=== PATIENT | female | born 1950 | race Caucasian/White ===

== ENCOUNTER 2018-01-28 09:30 | Observation (INO) ==
[2018-01-28 10:51] LABS: Baso % (Auto) 0.6 % (0.0-2.0); Eos # (Auto) 0.1 th/mm3 (0.0-0.4); Eos % (Auto) 2.3 % (0.0-4.0); Hemoglobin 14.4 gm/dL (11.6-15.3); Lymph # (Auto) 1.6 th/mm3 (1.0-4.8); Lymph % (Auto) 25.3 % (9.0-44.0); Mean Corpuscular HGB Conc 34.1 % (32.0-36.0); Mean Corpuscular Hemoglobin 29.8 pg (27.0-34.0); Mean Corpuscular Volume 87.4 fL (80.0-100.0); Mean Platelet Volume 8.7 fL (7.0-11.0); Mono # (Auto) 0.4 th/mm3 (0.0-0.9); Mono % (Auto) 6.8 % (0.0-8.0); Neut # (Auto) 4.1 th/mm3 (1.8-7.7); Platelet Count 160 th/mm3 (150-450); Red Blood Count 4.81 mil/mm3 (4.00-5.30); Red Cell Distribution Width 14.9 % (11.6-17.2); White Blood Count 6.3 th/mm3 (4.0-11.0)
[2018-01-28 11:13] LABS: Prothrombin Time 9.9 sec (9.8-11.6)
[2018-01-28 11:14] LABS: D-Dimer 0.47 mg/L FEU (0.00-0.50)
[2018-01-28 11:20] LABS: Alanine Aminotransferase 37 U/L (10-53); Albumin 3.7 g/dL (3.4-5.0); Anion Gap 11 meq/L (5-15); Blood Urea Nitrogen 11 mg/dL (7-18); Calcium 8.7 mg/dL (8.5-10.1); Carbon Dioxide 25.5 meq/L (21.0-32.0); Chloride 107 meq/L (98-107); Glomerular Filtration Rate 72 mL/min (>89); Glucose,Random 92 mg/dL (74-106); Lipase 242 U/L (73-393); Potassium 3.7 meq/L (3.5-5.1); Sodium 143 meq/L (136-145)
[2018-01-28 11:25] LABS: Alkaline Phosphatase 119 U/L (45-117); Aspartate Aminotransferase 26 U/L (15-37); Total Protein 7.3 g/dL (6.4-8.2)
[2018-01-28 11:26] LABS: Creatine Kinase 37 U/L (26-192)
--- NOTE | 2018-01-28 11:41 | XR ---
EXAM DATE: 01/28/2018 11:16 AM EDT AGE/SEX: 67 years / Female INDICATIONS: Fluttering feeling in her chest today CLINICAL DATA: This is the patient's initial encounter. Patient reports that signs and symptoms have been present for 1 day and indicates a pain score of 3/10. MEDICAL/SURGICAL HISTORY: None. None. COMPARISON: No prior exams available for comparison. FINDINGS: The cardiac silhouette is enlarged in transverse diameter. The lungs are free of acute parenchymal op acity. No effusions are identified. There is prominence of the aortic knob is with calcification frieda acteristic of atherosclerotic vascular disease. CONCLUSION: Cardiomegaly. No acute pulmonary disease. Electronically signed by: Pan Enamorado MD 01/28/2018 11:40 AM EDT
--- NOTE | 2018-01-28 11:54 | ED ---
HPI General Chief Complaint: Chest Pain Stated Complaint: Chest Pain Time Seen by Provider: 01/28/18 10:09 Source: patient Mode of arrival: ambulatory Limitations: no limitations History of Present Illness HPI narrative: Patient is a 67-year-old female with history of hypothyroidism who presents to the emergency room with complaints of chest pain. Patient reports that she woke up this morning with a substernal flutter to her chest. Reports that her Fitbit said that her heart rate was 126. Patient reports that her heart was racing, reports that she began to have pressure and shortness of breath along with nausea with no vomiting. Patient reports that all of a sudden she felt diaphoretic, she was lasted for a few minutes and resolves on its own. Patient reports that she began to have return of chest pain upon arrival to the emergency room, patient describes the chest pain as a "little pressure to her chest." Pain is rated 3 out of 10. Patient denies history of hypertension or hyperlipidemia, no history of coronary artery disease. Patient is concerned as her brother passed of a massive HI at 61 years old. Patient is a non-smoker, she quit smoking tobacco a few years ago. Patient with no history of PE or DVT, denies any recent travels or trips or immobilization. Complete Quality Measures for STEMI Alert Patients Related Data Home Medications Medication Instructions Recorded Confirmed levothyroxine 125 mcg PO DAILY 01/28/18 01/28/18 Allergies Allergy/AdvReac Type Severity Reaction Status Date / Time No Known Allergies Allergy Unverified 01/28/18 10:01 Review of Systems ROS: all other systems reviewed are negative [facility] Medical History Medical History Hypothyroidism (Acute) Ovarian cyst, left (Acute) Surgical History Surgical History History of back surgery (Acute) History of cholecystectomy (Acute) Hx of appendectomy (Acute) Social History Social History Smoking Status: Former smoker How Often Do You Have a Drink Containing Alcohol: 4 or more times a week Recent Travel in [facility] within the Last 8 Weeks: No Recent Out of Country Travel within the Last 8 Weeks: No Immunization History Tetanus Immunization: Unsure Hx Influenza Vaccine This Season: Yes Exam Narrative Exam Narrative: GENERAL: NAD SKIN: Focused skin assessment warm/dry. HEAD: Atraumatic. Normocephalic. EYES: Pupils equal and round. No scleral icterus. No injection or drainage. ENT: No nasal bleeding or discharge. Mucous membranes pink and moist. NECK: Trachea midline. No JVD. CARDIOVASCULAR: Regular rate and rhythm. No murmur appreciated. RESPIRATORY: No accessory muscle use. Clear to auscultation. Breath sounds equal bilaterally. GASTROINTESTINAL: Abdomen soft, non-tender, nondistended. Hepatic and splenic margins not palpable. MUSCULOSKELETAL: No obvious deformities. No clubbing. No cyanosis. No edema. NEUROLOGICAL: Awake and alert. No obvious cranial nerve deficits. Motor grossly within normal limits. Normal speech. PSYCHIATRIC: Appropriate mood and affect; insight and judgment normal. Course Initial Documented Vital Signs Temperature 97.6 F 01/28/18 09:31 Pulse Rate 80 01/28/18 09:31 Respiratory Rate 18 01/28/18 09:31 Blood Pressure 209/91 H 01/28/18 09:31 Pulse Oximetry 98 01/28/18 09:31 Last Documented Vital Signs Temperature 97.6 F 01/28/18 09:31 Pulse Rate 72 01/28/18 10:36 Respiratory Rate 17 01/28/18 10:36 Blood Pressure 160/76 H 01/28/18 10:36 Pulse Oximetry 92 L 01/28/18 11:42 Medical Decision Making [facility] Narrative Medical decision making narrative: During the course of the patients emergency department visit, the patients history, examination, and differential diagnosis were reviewed with the patient. The patient was placed on a cardiac catheterization technician with oximetry and frequent blood pressure monitoring. The patient had an IV access obtained and blood work sent for analysis. The patient was initially provided asa as well as SL nitro. All labs and all studies were reviewed. First set of troponin is less than 0.02 , d-dimer is 0.47. Patient had relief of chest pain after she had 2 sublingual nitroglycerin tabs. Plan to obs in chest pain unit Medical Screen Exam Complete: Yes Emergency Medical Condition: Yes Differential Diagnosis Differential Diagnosis: ACS, arrhythmia, PE, electrolyte abnormality, pneumothorax Medical Records Medical records reviewed: Yes I reviewed the patient's medical records. Lab Data Lab results reviewed: Yes I reviewed the patient's lab results. Result diagrams: 01/28/18 10:25 01/28/18 10:25 Lab Results 01/28/18 01/28/18 01/28/18 Range/Units 10:25 10:25 10:25 WBC 6.3 (4.0-11.0) th/mm3 RBC 4.81 (4.00-5.30) mil/mm3 Hgb 14.4 (11.6-15.3) gm/dL Hct 42.0 (35.0-46.0) % MCV 87.4 (80.0-100.0) fL MCH 29.8 (27.0-34.0) pg MCHC 34.1 (32.0-36.0) % RDW 14.9 (11.6-17.2) % Plt Count 160 (150-450) th/mm3 MPV 8.7 (7.0-11.0) fL Neut % (Auto) 65.0 (16.0-70.0) % Lymph % (Auto) 25.3 (9.0-44.0) % [place] % (Auto) 6.8 (0.0-8.0) % Eos % (Auto) 2.3 (0.0-4.0) % Baso % (Auto) 0.6 (0.0-2.0) % Neut # (Auto) 4.1 (1.8-7.7) th/mm3 Lymph # (Auto) 1.6 (1.0-4.8) th/mm3 [place] # (Auto) 0.4 (0.0-0.9) th/mm3 Eos # (Auto) 0.1 (0.0-0.4) th/mm3 Baso # (Auto) 0.0 (0.0-0.2) th/mm3 WBC Differential . Differential Comment Auto diff final PT 9.9 (9.8-11.6) sec INR 1.0 Ratio D-Dimer Quant (PE/DVT) 0.47 (0.00-0.50) mg/L FEU Sodium (136-145) meq/L Potassium (3.5-5.1) meq/L Chloride (98-107) meq/L Carbon Dioxide (21.0-32.0) meq/L Anion Gap (5-15) meq/L BUN (7-18) mg/dL Creatinine (0.50-1.00) mg/dL Estimated GFR (>89) mL/min Random Glucose (74-106) mg/dL Calcium (8.5-10.1) mg/dL Total Bilirubin (0.2-1.0) mg/dL AST (15-37) U/L ALT (10-53) U/L Alkaline Phosphatase (45-117) U/L Total Creatine Kinase (26-192) U/L Troponin I (0.02-0.05) ng/mL B-Natriuretic Peptide 21 (0-100) pg/mL Total Protein (6.4-8.2) g/dL Albumin (3.4-5.0) g/dL Lipase (73-393) U/L 01/28/18 Range/Units 10:25 WBC (4.0-11.0) th/mm3 RBC (4.00-5.30) mil/mm3 Hgb (11.6-15.3) gm/dL Hct (35.0-46.0) % MCV (80.0-100.0) fL MCH (27.0-34.0) pg MCHC (32.0-36.0) % RDW (11.6-17.2) % Plt Count (150-450) th/mm3 MPV (7.0-11.0) fL Neut % (Auto) (16.0-70.0) % Lymph % (Auto) (9.0-44.0) % [place] % (Auto) (0.0-8.0) % Eos % (Auto) (0.0-4.0) % Baso % (Auto) (0.0-2.0) % Neut # (Auto) (1.8-7.7) th/mm3 Lymph # (Auto) (1.0-4.8) th/mm3 [place] # (Auto) (0.0-0.9) th/mm3 Eos # (Auto) (0.0-0.4) th/mm3 Baso # (Auto) (0.0-0.2) th/mm3 WBC Differential Differential Comment PT (9.8-11.6) sec INR Ratio D-Dimer Quant (PE/DVT) (0.00-0.50) mg/L FEU Sodium 143 (136-145) meq/L Potassium 3.7 (3.5-5.1) meq/L Chloride 107 (98-107) meq/L Carbon Dioxide 25.5 (21.0-32.0) meq/L Anion Gap 11 (5-15) meq/L BUN 11 (7-18) mg/dL Creatinine 0.79 (0.50-1.00) mg/dL Estimated GFR 72 L (>89) mL/min Random Glucose 92 (74-106) mg/dL Calcium 8.7 (8.5-10.1) mg/dL Total Bilirubin 0.5 (0.2-1.0) mg/dL AST 26 (15-37) U/L ALT 37 (10-53) U/L Alkaline Phosphatase 119 H (45-117) U/L Total Creatine Kinase 37 (26-192) U/L Troponin I Less than 0.02 L (0.02-0.05) ng/mL B-Natriuretic Peptide (0-100) pg/mL Total Protein 7.3 (6.4-8.2) g/dL Albumin 3.7 (3.4-5.0) g/dL Lipase 242 (73-393) U/L Imaging Data Attestation: I personally reviewed and interpreted this imaging study as follows : Radiologist's impression: Chest X-Ray 01/28/18 10:14 CONCLUSION: Cardiomegaly. No acute pulmonary disease. ECG Data EKG Prior to Arrival: No Attestation: I personally reviewed and interpreted this ECG as follows: Interpretation: EKG at 0955: NSR at 80bpm, qt/qtc: 389/425, no acute st or t wave changes Discharge Plan Discharge Disposition Patient Disposition: 30 Still Patient Discharge Condition Condition: Stable Discharge Details Diagnosis: Chest pain Physicians Team ED Provider: Yolette Reyes Primary Care Provider: Chanelle Kay Attending Provider: Dilma Fagan Discharge Interventions Interventions: Vital Signs Last Done: 01/28/18 10:36 Status ED Status: Admitted Observation Patient
--- NOTE | 2018-01-28 13:20 | P.HPCA ---
History of Present Illness Primary Care Physician: MONSE Lange Chief Complaint: Chest pain History of Present Illness: This is a 67-year-old female that presents to ED via private vehicle with complaint of waking up 5:00 this morning with a sensation of her heart beating out of her chest. She states she was wearing a fit bit and checked her heart rate was 126. Afterwards she developed a pressure in the center of her chest that waxed and waned in intensity lasted about 5 hours. For the most part the discomfort was about 3 out of 10. She denies being short of breath, nauseous, or diaphoretic. She believes she had a similar episode but was quite a while ago. She states that while living in [place] she had a similar episode and had a cardiac catheterization. She thinks that that was in 2005 and that it was normal. 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 She was hypotensive upon arrival in the ED but states that is very unusual for her. States she has never had a blood pressure reading that was elevated. Patient is a past smoker. States she quit smoking 12 years ago prior that she smoked 1/2-2 packs of cigarettes a day for 50 years. She has occasional alcohol. Denies illicit drug use. Has history of hypothyroidism. Denies hypertension, hyperlipidemia, diabetes, and CAD. There is family history of CAD. States that her brother at the age of 61 of a myocardial infarction. States only medication she takes is levothyroxine. - Diagnosis (1) Chest pain (2) Hypothyroidism Review of Systems General: Patient denies fevers, chills, and recent travel. HEENT: Patient denies headache, sore throat, difficulty swallowing. Cardiovascular: Has the chest discomfort as mentioned above. Denies sensation of heart beating rapidly or irregularly. No syncope. Respiratory: Denies shortness of breath or inspirational chest discomfort. Denies coughing wheezing or hemoptysis. GI: Patient denies nausea, vomiting, diarrhea, abdominal pain, bloody stools. Musculoskeletal: Patient denies joint pain or edema. Denies calf pain or edema. Neurovascular: Patient denies numbness, tingling, weakness in extremities. Denies headache. Endocrine: Denies polyuria and polydipsia. Hematologic: Denies easy bruising. Skin: Denies rash or itching. PMFSH - History History Provided By: Patient, Friend - Medical History Medical History: Medical History (Last Reviewed 01/28/18 @ 12:36 by Yolette Reyes) Hypothyroidism Ovarian cyst, left - Surgical History Surgical History: Surgical History (Last Reviewed 01/28/18 @ 12:36 by Yolette Reyes) History of back surgery History of cholecystectomy Hx of appendectomy - Tobacco History Smoking Status: Former smoker - Alcohol History How Often Do You Have a Drink Containing Alcohol: 4 or more times a week - Travel History Recent Travel in the [place] Within the Last 8 Weeks: No Recent Travel Out of the Country Within the Last 8 Weeks: No - Immunization History Tetanus Immunization: Unsure Hx Influenza Vaccine This Season: Yes Medications and Allergies Active Medications: Active Medications Acetaminophen (Tylenol) 500 mg PO Q6H PRN PRN Reason: pain scale 1-5 Hydrocodone Bitart/Acetaminophen ([place] 7.5/325) 1 tab PO Q6H PRN PRN Reason: pain scale 6-10 Albuterol (Duoneb Neb (Prn)) 1 ampul NEB Q4HR NEB PRN PRN Reason: SHORTNESS OF BREATH/WHEEZING Alprazolam (Xanax) 0.25 mg PO Q8H PRN PRN Reason: ANXIETY Aspirin (Aspirin) 325 mg PO DAILY SCAR Clonidine HCl (Catapres) 0.1 mg PO Q6H PRN PRN Reason: SBP >165 OR DBP > 110 Sodium Chloride (Ns Flush) 2 ml IV.FLUSH UNSCH PRN PRN Reason: FLUSH AFTER USING IV ACCESS Last Admin: 01/28/18 10:21 Dose: 2 ml Allergies Allergy/AdvReac Type Severity Reaction Status Date / Time No Known Allergies Allergy Unverified 01/28/18 10:01 Home Medications Medication Instructions Recorded Confirmed Type levothyroxine 125 mcg PO DAILY 01/28/18 01/28/18 History Exam Vital signs: Vital Signs 01/28/18 09:31 01/28/18 09:56 01/28/18 10:20 Temperature 97.6 F Pulse Rate 80 83 75 Respiratory Rate 18 20 20 Blood Pressure 209/91 H 203/95 H 209/92 H Pulse Oximetry 98 97 96 01/28/18 10:36 01/28/18 11:42 Temperature Pulse Rate 72 Respiratory Rate 17 Blood Pressure 160/76 H Pulse Oximetry 95 92 L Intake & Output 01/27/18 01/28/18 01/28/18 18:59 06:59 18:59 Weight 96.615 kg Narrative: GENERAL: This is a well-nourished, well-developed patient, in no apparent distress. Patient speaks in clear complete sentences. Patient is pleasant. HEENT: Head is atraumatic and normocephalic. Neck is supple without lymphadenopathy and trachea is midline. No JVD or carotid bruits. CARDIOVASCULAR: Regular rate and rhythm without murmurs, gallops, or rubs. RESPIRATORY: Clear to auscultation. Breath sounds equal bilaterally. No wheezes , rales, or rhonchi. Chest wall is tender reproducing the same discomfort that brought her to the ED. No use of accessory muscles. GASTROINTESTINAL: Abdomen is nontender, nondistended. Abdomen soft. No obvious pulsatile mass or bruit. No CVA tenderness. Strong femoral pulses bilaterally. Normal bowel sounds in all quadrants. MUSCULOSKELETAL: Patient is moving upper and lower extremities freely. No calf tenderness or edema, no Homans sign. Strong pulses in upper and lower extremities. NEUROLOGICAL: Patient is alert and oriented. Cranial nerves 2-12 are grossly intact. No focal deficits and speech is clear. SKIN: No rash and turgor is normal. Results 01/28/18 10:25 01/28/18 10:25 Cardiac Enzymes 01/28/18 01/28/18 Range/Units 10:25 10:25 AST 26 (15-37) U/L Troponin I Less than 0.02 L (0.02-0.05) ng/mL B-Natriuretic Peptide 21 (0-100) pg/mL Coagulation 01/28/18 01/28/18 Range/Units 10:25 10:25 PT 9.9 (9.8-11.6) sec B-Natriuretic Peptide 21 (0-100) pg/mL CBC 01/28/18 Range/Units 10:25 WBC 6.3 (4.0-11.0) th/mm3 RBC 4.81 (4.00-5.30) mil/mm3 Hgb 14.4 (11.6-15.3) gm/dL Hct 42.0 (35.0-46.0) % Plt Count 160 (150-450) th/mm3 Neut # (Auto) 4.1 (1.8-7.7) th/mm3 Lymph # (Auto) 1.6 (1.0-4.8) th/mm3 [place] # (Auto) 0.4 (0.0-0.9) th/mm3 Eos # (Auto) 0.1 (0.0-0.4) th/mm3 Baso # (Auto) 0.0 (0.0-0.2) th/mm3 Comprehensive Metabolic Panel 01/28/18 Range/Units 10:25 Sodium 143 (136-145) meq/L Potassium 3.7 (3.5-5.1) meq/L Chloride 107 (98-107) meq/L Carbon Dioxide 25.5 (21.0-32.0) meq/L BUN 11 (7-18) mg/dL Creatinine 0.79 (0.50-1.00) mg/dL Calcium 8.7 (8.5-10.1) mg/dL AST 26 (15-37) U/L ALT 37 (10-53) U/L Alkaline Phosphatase 119 H (45-117) U/L Total Protein 7.3 (6.4-8.2) g/dL Albumin 3.7 (3.4-5.0) g/dL Intake and Output 01/27/18 01/28/18 01/28/18 22:59 06:59 14:59 Other: Weight 96.615 kg Patient Weight 01/29/18 06:59 Weight 96.615 kg EKG interpretations - EKG EKG shows: sinus rhythm (EKG is sinus rhythm without significant ST segment depressions or elevations.) Caprini VTE Risk Assessment Caprini VTE Risk Assessment: Moderate/High Risk (score >= 2) Caprini Risk Assessment Model: Point Value = 1 Point Value = 2 Point Value = 3 Point Value = 5 Age 41-60 Minor surgery BMI > 25 kg/m2 Swollen legs Varicose veins or History of unexplained or recurrent spontaneous Oral contraceptives or hormone replacement Sepsis (< 1 month) Serious lung disease, including pneumonia (< 1 month) Abnormal pulmonary function Acute myocardial infarction Congestive heart failure (< 1 month) History of inflammatory bowel disease Medical patient at bed rest Age 61-74 Arthroscopic surgery Major open surgery (> 45 min) Laparoscopic surgery (> 45 min) Malignancy Confined to bed (> 72 hours) Immobilizing plaster cast Central venous access Age >= 75 History of VTE Family history of VTE Factor V Leiden Prothrombin [id number] Lupus anticoagulant Anticardiolipin antibodies Elevated serum homocysteine Heparin-induced thrombocytopenia Other congenital or acquired thrombophilia Stroke (< 1 month) Elective arthroplasty Hip, pelvis, or leg fracture Acute spinal cord injury (< 1 month) Prophylaxis Regimen: Total Risk Factor Score Risk Level Prophylaxis Regimen 0-1 Low Early ambulation 2 Moderate Order ONE of the following: *Sequential Compression Device (SCD) *Heparin 5000 units SQ BID 3-4 Higher Order ONE of the following medications: *Heparin 5000 units SQ TID *Enoxaparin/Lovenox 40 mg SQ daily (WT < 150 kg, CrCl > 30 mL/min) *Enoxaparin/Lovenox 30 mg SQ daily (WT < 150 kg, CrCl > 10-29 mL/min) *Enoxaparin/Lovenox 30 mg SQ BID (WT < 150 kg, CrCl > 30 mL/min) AND/OR *Sequential Compression Device (SCD) 5 or more Highest Order ONE of the following medications: *Heparin 5000 units SQ TID (Preferred with Epidurals) *Enoxaparin/Lovenox 40 mg SQ daily (WT < 150 kg, CrCl > 30 mL/min) *Enoxaparin/Lovenox 30 mg SQ daily (WT < 150 kg, CrCl > 10-29 mL/min) *Enoxaparin/Lovenox 30 mg SQ BID (WT < 150 kg, CrCl > 30 mL/min) AND *Sequential Compression Device (SCD) Assessment and Plan - Assessment (1) Chest pain Code(s): R07.9 - Chest pain, unspecified Status: Acute (2) Hypothyroidism Code(s): E03.9 - Hypothyroidism, unspecified Status: Acute - Plan * Chest pain: Patient will continue to have serial cardiac enzymes and EKGs for ruling out purposes. She will be seen by Dr. Fagan of cardiology in the chest pain center. She was hypertensive when arriving in the ED which she states is very unusual for her. Her blood pressures have since improved but still a little bit elevated. We will continue to monitor. As needed Catapres. Patient will likely have a Lexiscan in the morning as she has chronic back pain would not be able walk on the treadmill. She be discharged home if her stress test is nonischemic with instructions to follow-up with PCP. Return to ED for interval issues. * Hypothyroidism: Continue medication. Will get a TSH. Patient is stable at this time. She is agreeable to this plan.
[2018-01-28] MEDS ORDERED: ALPRAZolam 0.25 MG Tablet PO PRN (14:00)
[2018-01-28 14:39] LABS: Creatine Kinase 30 U/L (26-192)
[2018-01-28] MEDS ORDERED: Acetaminophen 500 MG Tablet PO PRN (15:00)
[2018-01-28 17:16] LABS: Thyroid Stimulating Hormone 0.048 uIU/mL (0.358-3.740)
[2018-01-28 17:23] LABS: Creatine Kinase 27 U/L (26-192)
[2018-01-29 08:19] VITALS: BP 164/77; PULSE 72; RESP 17; TEMP 97.8
--- NOTE | 2018-01-29 08:21 | P.PNCA ---
Subjective Interval history: Slept well. Intermittent left anterior chest pain. Sharp, brief discomfort of 1- 2 seconds. No radiation. Mild in severity. No precipitating or relieving factors. Physical Exam Vital signs: Vital Signs 01/28/18 09:31 01/28/18 09:56 01/28/18 10:20 Temperature 97.6 F Pulse Rate 80 83 75 Respiratory Rate 18 20 20 Blood Pressure 209/91 H 203/95 H 209/92 H Pulse Oximetry 98 97 96 01/28/18 10:36 01/28/18 11:42 01/28/18 13:57 Temperature 97.7 F Pulse Rate 72 74 Respiratory Rate 17 18 Blood Pressure 160/76 H 157/68 H Pulse Oximetry 95 92 L 95 01/28/18 15:05 01/28/18 15:08 01/28/18 19:20 Temperature 98.1 F 98.4 F Pulse Rate 73 73 81 Respiratory Rate 18 19 Blood Pressure 157/80 H 153/89 H Pulse Oximetry 94 L 01/28/18 20:00 01/29/18 00:00 01/29/18 03:16 Temperature 98.1 F 98.4 F Pulse Rate 79 75 73 Respiratory Rate 20 20 Blood Pressure 146/70 H 156/72 H Pulse Oximetry 94 L 94 L 01/29/18 07:37 01/29/18 08:00 Temperature 97.8 F Pulse Rate 72 Respiratory Rate 17 Blood Pressure 164/77 H Pulse Oximetry 97 93 L Intake & Output 01/28/18 01/29/18 01/29/18 18:59 06:59 18:59 Weight 96.615 kg Other: # Voids 1 1 Date of Last Bowel Movement 01/28/18 - Constitutional no acute distress - Routine HEENT Exam Head: Present: normocephalic - Routine Respiratory Exam Present: CTA bilaterally. Absent: accessory muscle use, respiratory distress, rhonchi, stridor, wheezes, crackles - Routine Cardiovascular Exam Present: RRR, S1, S2. Absent: murmur, gallop, rubs Assessment and Plan - Assessment (1) Chest pain Code(s): R07.9 - Chest pain, unspecified Status: Acute Plan: ACS ruled out with 3 sets of EKGs and cardiac enzymes. Monitor on telemetry overnight. Previously seen and evaluated by Dr. Dilma Rylan. Proceed with plan Lexiscan this a.m. If unremarkable, plans to discharge home with follow-up with primary care provider. Patient is agreeable to plan of care. (2) Hypothyroidism Code(s): E03.9 - Hypothyroidism, unspecified Status: Acute Plan: Continue levothyroxine. - Plan * Chest pain: Patient will continue to have serial cardiac enzymes and EKGs for ruling out purposes. She will be seen by Dr. Fagan of cardiology in the chest pain center. She was hypertensive when arriving in the ED which she states is very unusual for her. Her blood pressures have since improved but still a little bit elevated. We will continue to monitor. As needed Catapres. Patient will likely have a Lexiscan in the morning as she has chronic back pain would not be able walk on the treadmill. She be discharged home if her stress test is nonischemic with instructions to follow-up with PCP. Return to ED for interval issues. * Hypothyroidism: Continue medication. Will get a TSH. Patient is stable at this time. She is agreeable to this plan.
[2018-01-29] MEDS ORDERED: Aspirin 325 MG Tablet PO SCH (09:00)
[2018-01-29] MEDS ORDERED: Regadenoson Inj 0.4 MG/5 ML Syringe IV.PUSH ONE (11:29)
[2018-01-29 12:14] VITALS: O2SAT 98
--- NOTE | 2018-01-29 12:29 | ECG ---
Date Performed: 01/28/2018 Time Performed: 22:21:31 PTAGE: 67 years EKG: Sinus rhythm MARKED LEFT AXIS DEVIATION ABNORMAL ECG No change NO PREVIOUS TRACING DOCTOR: Jarret Jimenez Interpretating Date/Time 01/29/2018 12:27:15
--- NOTE | 2018-01-29 12:33 | ECG ---
Date Performed: 01/28/2018 Time Performed: 16:30:14 PTAGE: 67 years EKG: Sinus rhythm MARKED LEFT AXIS DEVIATION ABNORMAL ECG No significant change PREVIOUS TRACING : 01/28/2018 13.36 DOCTOR: Jarret Jimenez Interpretating Date/Time 01/29/2018 12:31:43
--- NOTE | 2018-01-29 12:33 | ECG ---
Date Performed: 01/28/2018 Time Performed: 13:36:49 PTAGE: 67 years EKG: Sinus rhythm PATTERN CONSISTENT WITH PULMONARY DISEASE LEFT ANTERIOR FASCICULAR BLOCK ABNORMAL ECG No significant change PREVIOUS TRACING : 01/28/2018 09.55 DOCTOR: Jarret Jimenez Interpretating Date/Time 01/29/2018 12:32:42
--- NOTE | 2018-01-29 12:34 | ECG ---
Date Performed: 01/28/2018 Time Performed: 09:55:57 PTAGE: 67 years EKG: Sinus rhythm MARKED LEFT AXIS DEVIATION PATTERN CONSISTENT WITH PULMONARY DISEASE ABNORMAL ECG NO PREVIOUS TRACING DOCTOR: Jarret Jimenez Interpretating Date/Time 01/29/2018 12:33:04
--- NOTE | 2018-01-29 13:03 | NM ---
EXAM DATE: 01/29/2018 12:58 PM EDT AGE/SEX: 67 years / Female INDICATIONS:Angina. . Center chest pain. CLINICAL DATA: This is the patient's initial encounter. Patient reports that signs and symptoms have been present for 2 days and indicates a pain score of 5/10. MEDICAL/SURGICAL HISTORY: Hypothyroidism. Fusion, lumbar. Cholecystectomy. COMPARISON: No prior exams available for comparison. DOSE: 8.1 mCi Tc 99m Myoview at rest 26.8 mCi [id number] at stress 0.4 mg Lexiscan STRESS SYMPTOMS: Headache. EJECTION FRACTION: >70 % TECHNIQUE: The patient underwent pharmacologic stress with infusion of prescribed dose. Continuous ECG tracing was monitored during stress. Gated SPECT imaging was performed after stress and conventi onal SPECT imaging was performed at rest. The examination was performed on a SPECT/CT scanner, both attenuation and non-corrected datasets were reviewed. FINDINGS: Distribution: The maximum perfused segment at stress is in the anterior wall. Perfusion Study: The pattern of perfusion at stress is within normal limits. Gated Study: There are intact wall motion and wall thickening without hypokinetic or dyskinetic segm ents. The ejection fraction is calculated at >70%. RISK CATEGORY: Low (<1% Annual Motality Rate) CONCLUSION: 1. No evidence of fixed or reversible perfusion defect. Normal cardiac motion and ejection fraction. Electronically signed by: Gema Short MD 01/29/2018 1:02 PM EDT
--- NOTE | 2018-01-30 13:32 | TR ---
Date Performed: 01/29/2018 Time Performed: 12:15:22 DOCTOR: Jarret Jimenez DRUG LIST: CLINICAL HISTORY: REASON FOR TEST: REASON FOR ENDING: OBSERVATION: CONCLUSION: Lexiscan stress test was performed under standard four minute protocol. Radionuclide was injected one minute prior to ending the test. No electrocardiographic abormalities were present to suggest ischemia. Nuclear imaging and interpretation are pending. COMMENTS:
== END 2018-01-29 16:53 | disposition home or self-care (01) ==
LOC: NEDA 09:30 → NEPC 09:30 → NEDA 13:15 → NEPHCDU 13:33 → NEPGCP 17:17
PROVIDERS: ADMIT Internal Medicine Interventional Cardiology; ATTEND Internal Medicine Interventional Cardiology